=== PATIENT | male | born 1955 | race American Indian/Alaskan Native ===

== ENCOUNTER 2020-09-22 11:31 | Emergency (ER) | payer MEDICARE ==
--- NOTE | 2020-09-22 12:03 | Emergency Department Report ---
ED Fall HPI - General Chief Complaint: Back Pain/Injury Stated Complaint: KNEE PAIN Time Seen by Provider: 09/22/20 11:36 Source: patient, EMS Mode of arrival: Wheelchair Limitations: No Limitations - History of Present Illness Initial Comments: This is a 65-year-old male nontoxic, well nourished in appearance, no acute signs of distress presents to the ED with c/o of lower back pain, right knee pain, right ankle and foot pain status post fall that occurred today prior to arrival. Patient stated that he was working on a roof which collapsed and slid down. Patient denies any radiation. Patient denies any other trauma or injuries. Patient denies any neck or mid back pain. Denies any loss of consciousness. Patient brought by EMS. Original complaint was only right knee pain and then developed pain after coming to the ER. Denies any bladder or bowel instability. Patient denies any urinary symptoms. Denies any fever, chills, nausea, vomiting, headache, stiff neck, chest pain or shortness of breath. Patient denies any numbness or tingling. Denies any allergies. MD Complaint: fall -: This morning Loss of Consciousness: none Prolonged Down Time?: no Symptoms Prior to Fall: none Location: back Location - Extremities: Right: Knee, Ankle, Foot Severity: mild Severity scale (0 -10): 8 Quality: aching Context: tripped/slipped Associated Symptoms: denies. denies: headache, neck pain, numbness, weakness, chest paint, shortness of breath, abdominal pain, hematuria, unable to walk, lightheaded, vertigo, confusion - Related Data Previous Rx's Medication Instructions Recorded Last Taken Type Naproxen 500 mg PO Q12H PRN #20 tablet 09/22/20 Unknown Rx Allergies Allergy/AdvReac Type Severity Reaction Status Date / Time No Known Allergies Allergy Verified 09/22/20 11:53 ED Review of Systems ROS: Stated complaint: KNEE PAIN Other details as noted in HPI Comment: All other systems reviewed and negative Constitutional: denies: chills, fever Eyes: denies: eye pain, eye discharge, vision change ENT: denies: ear pain, throat pain Respiratory: denies: cough, shortness of breath, wheezing Cardiovascular: denies: chest pain, palpitations Endocrine: no symptoms reported Gastrointestinal: denies: abdominal pain, nausea, diarrhea Genitourinary: denies: urgency, dysuria Musculoskeletal: back pain. denies: joint swelling, arthralgia Skin: denies: rash, lesions Neurological: denies: headache, weakness, paresthesias Psychiatric: denies: anxiety, depression Hematological/Lymphatic: denies: easy bleeding, easy bruising ED Past Medical Hx - Social History Smoking Status: Never Smoker Substance Use Type: None - Medications Home Medications: Home Medications Medication Instructions Recorded Confirmed Last Taken Type Naproxen 500 mg PO Q12H PRN #20 tablet 09/22/20 Unknown Rx ED Physical Exam - General Limitations: No Limitations General appearance: alert, in no apparent distress - Head Head exam: Present: atraumatic, normocephalic - Eye Eye exam: Present: normal appearance, PERRL, EOMI - Neck Neck exam: Present: normal inspection, full ROM - Respiratory Respiratory exam: Present: normal lung sounds bilaterally. Absent: respiratory distress, wheezes, rales, rhonchi, stridor, chest wall tenderness, accessory muscle use, decreased breath sounds, prolonged expiratory - Cardiovascular Cardiovascular Exam: Present: regular rate, normal rhythm, normal heart sounds. Absent: bradycardia, tachycardia, irregular rhythm, systolic murmur, diastolic murmur, rubs, gallop - GI/Abdominal GI/Abdominal exam: Present: soft. Absent: distended, tenderness - Extremities Exam Extremities exam: Present: normal inspection, full ROM, tenderness, normal capillary refill. Absent: joint swelling - Expanded Lower Extremity Exam Right Hip exam: Present: normal inspection, full ROM, external rotation, internal rotation, pelvic stability. Absent: tenderness, swelling, laceration, ecchymosis, deformity, crepidus, dislocation, erythema, shortening Upper Leg exam: Present: normal inspection, full ROM. Absent: tenderness, swelling, abrasion, laceration, ecchymosis, deformity, crepidus, dislocation, erythema Knee exam: Present: full ROM, tenderness, full knee extension. Absent: swelling, abrasion, laceration, ecchymosis, deformity, crepidus, dislocation, erythema, effusion, pain w/ pronation/supination, posterior draw sign, pain/laxity with valgus, pain/laxity with varus Lower Leg exam: Present: normal inspection, full ROM. Absent: tenderness, swelling, abrasion, laceration, ecchymosis, deformity, crepidus, dislocation, erythema, palpable cord, Chrissie's sign Ankle exam: Present: full ROM, tenderness. Absent: swelling, abrasion, laceration, ecchymosis, deformity, crepidus, dislocation, erythema, anterior draw sign Foot/Toe exam: Present: full ROM, tenderness. Absent: swelling, abrasion, laceration, ecchymosis, deformity, crepidus, dislocation, erythema, amputation, puncture wound, foreign body, calcaneal tenderness, tenderness at base of 5th metatarsal, nail avulsion, subungual hematoma Neuro vascular tendon exam: Present: no vascular compromise Gait: Positive: observed and limited by pain - Back Exam Back exam: Present: normal inspection, full ROM, paraspinal tenderness (lumbar paraspinal). Absent: tenderness, CVA tenderness (R), CVA tenderness (L), muscle spasm, vertebral tenderness, rash noted - Expanded Back Exam Expanded Back exam: Absent: saddle anesthesia Back exam: Negative Straight Leg Raising: Left, Right - Neurological Exam Neurological exam: Present: alert, oriented X3 - Psychiatric Psychiatric exam: Present: normal affect, normal mood - Skin Skin exam: Present: warm, dry, intact, normal color. Absent: rash ED Course Vital Signs 09/22/20 11:52 Temperature 98.2 F Pulse Rate 69 Respiratory 18 Rate Blood Pressure 179/120 O2 Sat by Pulse 100 Oximetry - Reevaluation(s) Reevaluation #1: 09/22/20 12:03 Patient is speaking in full sentences with no signs of distress noted. ED Medical Decision Making - Radiology Data Referring Physician: OC CALZADA Patient Name: JOSEPH GARCIA Date of : 1996-08-10 Sex: Female Report Date: 2020-09-22 Report Status: Finalized [facility] [address] [place] [address] Ultrasound Report Signed Patient: JOSEPH GARCIA MR#: [id number] 232 : 08/10/1996 Acct:[id number] Age/Sex: 24 / F ADM Date: 09/22/20 Loc: ED Attending Dr: Ordering Physician: OC CALZADA NP Date of Service: 09/22/20 Procedure(s): US OB <= 14 weeks fetus Accession Number(s): [id number] cc: OC CALZADA NP ULTRASOUND OBSTETRIC Indication: vaginal bleeding/pelvic pain Findings: There is a single, living intrauterine . [place]-rump length = 1.36 cm = 7 weeks, 4 day(s). heart rate is 128 beats per minute. There is a moderate subchorionic bleed noted. Fibroid is noted in the fundus of uterus The ovaries are normal. There is no free fluid. Impression: Single, living intrauterine with estimated sonographic age of 7 weeks, 4 day(s). There is a moderate subchorionic bleed. Signer Name: Rashid Chu MD Signed: 09/22/2020 1:07 PM Workstation Name: [id number] Transcribed By: SS Dictated By: Rashid Chu MD Electronically Authenticated By: Rashid Chu MD Signed Date/Time: 09/22/20 1307 DD/ 1305 TD/TT: Referring Physician: OC CALZADA Patient Name: KIMBER HUNT Date of : 1955 Sex: Male Report Date: 2020-09-22 Report Status: Finalized [facility] [address] [place] [address] XRay Report Signed Patient: KIMBER HUNT MR#: [id number] 89 : 1955 Acct:[id number] Age/Sex: 65 / M ADM Date: 09/22/20 Loc: ED Attending Dr: Ordering Physician: OC CALZADA NP Date of Service: 09/22/20 Procedure(s): XR foot 3+V RT Accession Number(s): [id number] cc: OC CALZADA NP Fluoro Time In Minutes: RIGHT FOOT 3 VIEWS INDICATION / CLINICAL INFORMATION: pain s/p fall COMPARISON: None available. FINDINGS: BONES / JOINT(S): There is a fracture of the distal aspect of the right calcaneus which appears to involve the calcaneocuboid joint. There is no dislocation. No other fractures are seen. There is mild degenerative change in the great toe MTP joint. SOFT TISSUES: No significant abnormality. ADDITIONAL FINDINGS: None. Signer Name: Rashid Chu MD Signed: 09/22/2020 1:05 PM Workstation Name: [id number] Transcribed By: SS Dictated By: Rashid Chu MD Electronically Authenticated By: Rashid Chu MD Signed Date/Time: 09/22/20 1305 DD/ 130 TD/TT: Referring Physician: OC CALZADA Patient Name: KIMBER HUNT Date of : 1955 Sex: Male Report Date: 2020-09-22 Report Status: Finalized [facility] [address] [place] [address] XRay Report Signed Patient: KIMBER HUNT MR#: [id number] 89 : 1955 Acct:[id number] Age/Sex: 65 / M ADM Date: 09/22/20 Loc: ED Attending Dr: Ordering Physician: OC CALZADA NP Date of Service: 09/22/20 Procedure(s): XR foot 3+V RT Accession Number(s): [id number] cc: OC CALZADA NP Fluoro Time In Minutes: RIGHT FOOT 3 VIEWS INDICATION / CLINICAL INFORMATION: pain s/p fall COMPARISON: None available. FINDINGS: BONES / JOINT(S): There is a fracture of the distal aspect of the right calcaneus which appears to involve the calcaneocuboid joint. There is no dislocation. No other fractures are seen. There is mild degenerative change in the great toe MTP joint. SOFT TISSUES: No significant abnormality. ADDITIONAL FINDINGS: None. Signer Name: Rashid Chu MD Signed: 09/22/2020 1:05 PM Workstation Name: [id number] Transcribed By: SS Dictated By: Rashid Chu MD Electronically Authenticated By: Rashid Chu MD Signed Date/Time: 09/22/20 130 DD/ 130 TD/TT: Referring Physician: OC CALZADA Patient Name: KIMBER HUNT Date of : 1955 Sex: Male Report Date: 2020-09-22 Report Status: Finalized [address] [place] [address] XRay Report Signed Patient: KIMBER HUNT MR#: [id number] 89 : 1955 Acct:[id number] Age/Sex: 65 / M ADM Date: 09/22/20 Loc: ED Attending Dr: Ordering Physician: OC CALZADA NP Date of Service: 09/22/20 Procedure(s): XR knee 3V RT Accession Number(s): [id number] cc: OC CALZADA NP Fluoro Time In Minutes: RIGHT KNEE 3 VIEWS INDICATION / CLINICAL INFORMATION: pain s/p fall COMPARISON: None available. FINDINGS: BONES / JOINT(S): No acute fracture or subluxation. No significant arthritis. SOFT TISSUES: No significant abnormality. ADDITIONAL FINDINGS: None. Signer Name: Rashid Chu MD Signed: 09/22/2020 1:05 PM Workstation Name: [id number] Transcribed By: Dictated By: Rashid Chu MD Electronically Authenticated By: Rashid Chu MD Signed Date/Time: 09/22/20 130 DD/ 1305 TD/TT: - Medical Decision Making This is a 65-year-old male that presents with right knee strain, right calcaneus fracture, low back strain and right ankle sprain. Patient is stable and was examined by me. I referred patient to an orthopedic doctor for further evaluation for possible MRI. X-ray has been obtained and dictated by the radiologist. Patient is notified of the x-ray report with noted by the patient. Patient received a posterior short leg right for foot fracture and knee YANICK wrap with crutches. Educated by RN how to use crutches. Post splint assessm ent: neurovasular intact; normal cap refill <2 second; normal sensation; denies decreaed sensation; normal ROM of digits. Patient was instructed to RICE therapy. Patient is discharged with Naproxen. At time of discharge, the patient does not seem toxic or ill in appearance. No acute signs of distress noted. Patient agrees to discharge treatment plan of care. No further questions noted by the patient. Critical care attestation.: If time is entered above; I have spent that time in minutes in the direct care of this critically ill patient, excluding procedure time. ED Disposition Clinical Impression: Fall, Low back strain, Strain of right knee, Right calcaneal fracture, Right ankle sprain Disposition: TO HOME OR SELFCARE Is pt being admited?: No Does the pt Need Aspirin: No Condition: Stable Instructions: RICE Therapy for Routine Care of Injuries, [id number] Additional Instructions: Follow-up with a orthopedic doctor in 3-5 days or if symptoms worsen and continue return to emergency room as soon as possible. No physical activity that extremity until cleared by orthopedic doctor Prescriptions: Naproxen 500 mg PO Q12H PRN #20 tablet PRN Reason: Pain , Severe (7-10) Referrals: PRIMARY CAREMD [Referring] - 3-5 Days SOFY NELSON MD [Staff Physician] - 3-5 Days Time of Disposition: 13:49
--- NOTE | 2020-09-22 13:07 | XRay Report ---
RIGHT ANKLE 3 VIEWS INDICATION / CLINICAL INFORMATION: pain s/p fall COMPARISON: None available. FINDINGS: BONES / JOINT(S): There is a fracture of the distal aspect of the calcaneus which appears to involve the calcaneocuboid joint. No other fractures are seen. No significant arthritis. There is some spurri ng on the calcaneus at the insertion site of the plantar fascia with a small amount of dystrophic chris cification just anterior. SOFT TISSUES: No significant abnormality. ADDITIONAL FINDINGS: None. Signer Name: Rashid Chu MD Signed: 09/22/2020 1:03 PM Workstation Name: [id number]
--- NOTE | 2020-09-22 13:08 | XRay Report ---
LUMBAR SPINE 3 VIEWS INDICATION: pain s/p fall COMPARISON: None. FINDINGS: There is no fracture, subluxation, or other acute radiographic abnormality of the lumbar spine. There is mild discogenic degenerative change at L2-3, L3-4, L4-5 and L5-S1. There is anterior osteophyte f ormation. There is mild disc space narrowing at L4-5. Signer Name: Rashid Chu MD Signed: 09/22/2020 1:04 PM Workstation Name: [id number]
--- NOTE | 2020-09-22 13:09 | XRay Report ---
RIGHT FOOT 3 VIEWS INDICATION / CLINICAL INFORMATION: pain s/p fall COMPARISON: None available. FINDINGS: BONES / JOINT(S): There is a fracture of the distal aspect of the right calcaneus which appears to in volve the calcaneocuboid joint. There is no dislocation. No other fractures are seen. There is mild d egenerative change in the great toe MTP joint. SOFT TISSUES: No significant abnormality. ADDITIONAL FINDINGS: None. Signer Name: Rashid Chu MD Signed: 09/22/2020 1:05 PM Workstation Name: [id number]
--- NOTE | 2020-09-22 13:10 | XRay Report ---
RIGHT KNEE 3 VIEWS INDICATION / CLINICAL INFORMATION: pain s/p fall COMPARISON: None available. FINDINGS: BONES / JOINT(S): No acute fracture or subluxation. No significant arthritis. SOFT TISSUES: No significant abnormality. ADDITIONAL FINDINGS: None. Signer Name: Rashid Chu MD Signed: 09/22/2020 1:05 PM Workstation Name: [id number]
[2020-09-22 14:30] VITALS: BP 145/83
== END 2020-09-22 14:30 | disposition home or self-care (01) ==
LOC: ED 11:31
DX: S39.012A Strain of muscle, fascia and tendon of lower back, initial encounter (principal); S86.911A Strain of unspecified muscle(s) and tendon(s) at lower leg level, right leg, initial encounter; S93.401A Sprain of unspecified ligament of right ankle, initial encounter; S92.001A Unspecified fracture of right calcaneus, initial encounter for closed fracture; Z79.899 Other long term (current) drug therapy; W13.2XXA Fall from, out of or through roof, initial encounter; Y93.89 Activity, other specified; Y92.89 Other specified places as the place of occurrence of the external cause; Y99.8 Other external cause status
CPT/HCPCS: 72100